=== PATIENT | male | born 1975 | race Caucasian/White ===

== ENCOUNTER → 2020-04-06 | Outpatient (CLI) | payer OTHER ==
--- NOTE | 2020-04-06 10:28 | RAD ---
EXAM: Lumbar spine, 2 views. HISTORY: Pain. COMPARISON: None. FINDINGS: 2 views of the lumbar spine are obtained. There is degenerative endplate remodeling with disc space narrowing at L5-S1. There is minimal chronic anterior wedging of L1. There is minimal endplate remodeling at the upper lumbar levels. IMPRESSION: 1. Degenerative change primarily at L5-S1. 2. No acute osseous finding. Electronically signed by: Africa Underwood MD (04/06/2020 10:25 AM) [facility]
--- NOTE | 2020-04-06 10:52 | RAD ---
EXAM: Right knee, 2 views. HISTORY: Pain. COMPARISON: None. FINDINGS: 2 views of the right knee are obtained. There is no fracture, dislocation or subluxation. There is a small knee effusion. IMPRESSION: Small knee effusion. Electronically signed by: Africa Underwood MD (04/06/2020 10:49 AM) [facility]
== END | disposition home or self-care (01) ==
LOC: RAD 09:58
PROVIDERS: ATTEND Family Medicine
DX: M47.817 Spondylosis without myelopathy or radiculopathy, lumbosacral region (principal); M25.461 Effusion, right knee; M48.07 Spinal stenosis, lumbosacral region
CPT/HCPCS: 72100; 73560

== ENCOUNTER 2020-06-23 22:26 | Emergency (ER) | payer MEDICAID, OTHER ==
[~2020-06-23] VITALS: Ht 167.6 cm; Wt 65.9 kg
[2020-06-23 22:49] VITALS: BP 166/107
--- NOTE | 2020-06-23 22:53 | PHYS DOC ---
Past Medical History Past Medical History: No Pertinent History Smoking Status: Current Every Day Smoker Drug Use: Marijuana General Adult EDM: Chief Complaint: HAND PROBLEM HPI: HPI: Patient is a 45 year old 45-year-old male who arrives with a chief complaint of throbbing right middle finger pain. Patient states he was scrapping metal earlier today and feels like it may have a splinter in his right middle finger. Patient describes severe pain is worse with palpation. Patient is actively hyperventilating and restless in the room. Review of Systems: Review of Systems: Constitutional: Denies fever or chills. [] Eyes: Denies change in visual acuity. [] HENT: Denies nasal congestion or sore throat. [] Respiratory: Denies cough or shortness of breath. [] Cardiovascular: Denies chest pain or edema. [] GI: Denies abdominal pain, nausea, vomiting, bloody stools or diarrhea. [] : Denies dysuria. [] Musculoskeletal: Denies back pain or joint pain. [] Integument: Denies rash. [] Neurologic: Denies headache, focal weakness or sensory changes. [] Endocrine: Denies polyuria or polydipsia. [] Lymphatic: Denies swollen glands. [] Psychiatric: Denies depression or anxiety. [] Heart Score: Risk Factors: Risk Factors: DM, Current or recent (<one month) smoker, HTN, HLP, family history of CAD, obesity. Risk Scores: Score 0 - 3: 2.5% MACE over next 6 weeks - Discharge Home Score 4 - 6: 20.3% MACE over next 6 weeks - Admit for Clinical Observation Score 7 - 10: 72.7% MACE over next 6 weeks - Early Invasive Strategies Current Medications: Current Medications Medications (Trade) Dose Ordered Sig/Isidro Start Time Stop Time Status Last Admin Dose Admin Tetanus/ Diphtheria Toxoids (Tenivac Syringe) 0.5 ml ONCE ONCE 06/23/20 23:00 06/23/20 23:01 UNV Physical Exam: PE: Constitutional: Well developed, anxious, shaking HENT: Normocephalic, atraumatic, bilateral external ears normal, oropharynx moist, no oral exudates, nose normal. [] Eyes: PERRLA, EOMI, conjunctiva normal, no discharge. [] Neck: Normal range of motion, no tenderness, supple, no stridor. [] Cardiovascular:Heart rate regular rhythm, peripheral pulses are intact cap refill is brisk Lungs & Thorax: No respiratory distress Abdomen: Nondistended Skin: Warm, dry, superficial cut to the tip of the right middle finger, no significant erythema warmth or drainage. No fluctuance Back: No tenderness, no CVA tenderness. [] Extremities: Superficial cut to the right fingertip. Neurovascular intact distally. No signs of superinfection. Neurologic: Alert and oriented X 3, normal motor function, normal sensory function, no focal deficits noted. [] Psychologic: Anxious EKG: EKG: [] Radiology/Procedures: Radiology/Procedures: [] Course & Med Decision Making: Course & Med Decision Making Pertinent Labs and Imaging studies reviewed. (See chart for details) [] 11 PM patient seen eloping. Ramirez Disclaimer: Ashley Disclaimer: This electronic medical record was generated, in whole or in part, using a voice recognition dictation system. Departure Departure Impression: Primary Impression: Right hand pain Disposition: 07 AMA/ELOPED/LWBS Condition: STABLE Referrals: NO PCP (PCP) BILLY FORBES MD Jun 23, 2020 22:53
[2020-06-23] MEDS ORDERED: TETANUS AND DIPHTHERIA TOX/PF 0.5 ML DISP.SYRIN. VAX IM ONE (23:00)
== END 2020-06-23 22:59 | disposition left against medical advice (07) ==
LOC: ER 22:26
DX: M79.641 Pain in right hand (principal); M79.644 Pain in right finger(s); F17.200 Nicotine dependence, unspecified, uncomplicated
CPT/HCPCS: 99281

== ENCOUNTER → 2020-09-08 | Outpatient (CLI) | payer OTHER, MEDICAID ==
--- NOTE | 2020-09-08 10:39 | RAD ---
XR SHOULDER_RIGHT 2+ VIEWS DATE: 09/08/2020 9:30 AM INDICATION: Reason: PAIN, NO DEFINITE INJURY / Spl. Instructions: / History: COMPARISON: None. FINDINGS: Bones: There is no evidence of acute fracture or dislocation. Joints: The joint spaces are normal. The acromiohumeral distance is not narrowed. Miscellaneous: No abnormal soft tissue calcifications in the shoulder. IMPRESSION: Normal exam Electronically signed by: Sherif Cano MD (09/08/2020 10:37 AM) [id number]
--- NOTE | 2020-09-08 10:40 | RAD ---
XR KNEE_LT 1-2 VIEWS DATE: 09/08/2020 9:30 AM INDICATION: Reason: PAIN, NO DEFINITE INJURY / Spl. Instructions: / History: COMPARISON: None. FINDINGS: Bones: There is no evidence of acute fracture or dislocation. Superior patellar enthesophyte. Joints: The joint spaces are normal. There is no joint effusion. Miscellaneous: None. IMPRESSION: Normal exam Electronically signed by: Sherif Cano MD (09/08/2020 10:38 AM) [id number]
== END ==
LOC: RAD 09:04
PROVIDERS: ATTEND Family Medicine
DX: M77.8 Other enthesopathies, not elsewhere classified (principal); M25.511 Pain in right shoulder; M25.562 Pain in left knee
CPT/HCPCS: 73030; 73560